=== PATIENT | male | born 1980 | race Caucasian/White ===

== ENCOUNTER 2019-12-17 11:43 | Emergency (ER) | payer OTHER ==
--- NOTE | 2019-12-17 12:13 | EDM.PDOC ---
ED HPI GENERAL MEDICAL PROBLEM - General Chief Complaint: Lower Extremity Injury/Pain Stated Complaint: RIGHT FRANKIE JUMPED OFF ROOF INTO SNOW Time Seen by Provider: 12/17/19 12:09 Source of Information: Reports: Patient History Limitations: Reports: No Limitations - History of Present Illness INITIAL COMMENTS - FREE TEXT/NARRATIVE: 39 yo male jumped into a snow pile and hit some ice. Has pain and some swelling to the lateral ankle area. Took ibuprofen before arrival. 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 Right Ankle Pain Score (Numeric/FACES): 6 - Related Data Allergies Allergy/AdvReac Type Severity Reaction Status Date / Time No Known Allergies Allergy Verified 12/17/19 11:57 Home Meds: Home Meds NK [No Known Home Meds] 12/17/19 [History] Past Medical History Cardiovascular History: Reports: None - Past Surgical History Head Surgeries/Procedures: Reports: None Cardiovascular Surgical History: Reports: Other (See Below) Social & Family History - Tobacco Use Smoking Status *Q: Current Every Day Smoker Years of Tobacco use: 15 Packs/Tins Daily: 1 Second Hand Smoke Exposure: No - Caffeine Use Caffeine Use: Reports: Coffee, Soda - Recreational Drug Use Recreational Drug Use: Yes Drug Use in Last 12 Months: Yes Recreational Drug Type: Reports: Marijuana/Hashish Recreational Drug Use Frequency: Socially Review of Systems - Review of Systems Review Of Systems: See Below Constitutional: Reports: No Symptoms Musculoskeletal: Reports: Joint Pain (R lateral ankle), Joint Swelling (R lateral ankle) Skin: Reports: No Symptoms Neurological: Reports: No Symptoms ED EXAM, GENERAL - Physical Exam Exam: See Below Exam Limited By: No Limitations General Appearance: Alert, WD/WN, No Apparent Distress Extremities: Normal Range of Motion, Pedal Edema (R lateral ankle), Joint Swelling (over R lateral malleolus). No: Normal Inspection, Non-Tender, No Pedal Edema, Meredith's Sign, Increased Warmth, Redness Neurological: Alert, Oriented, CN II-XII Intact, Normal Cognition, No Motor/ Sensory Deficits Psychiatric: Normal Affect, Normal Mood Skin Exam: Warm, Dry, Intact, Normal Color, No Rash Course - Vital Signs Last Recorded V/S: Last Vital Signs Temp 37.1 C 12/17/19 12:03 Pulse 86 12/17/19 12:03 Resp 17 12/17/19 12:03 BP 140/77 12/17/19 12:03 Pulse Ox 91 L 12/17/19 12:03 - Orders/Labs/Meds Orders: Active Orders 24 hr Category Date Time Status Ankle Min 3V Rt [CR] Stat Exams 12/17/19 12:08 Ordered - Radiology Interpretation Free Text/Narrative:: R ankle X-ray-neg Departure - Departure Time of Disposition: 12:35 Disposition: Home, Self-Care 01 Condition: Good Clinical Impression: Right ankle sprain Qualifiers: Encounter type: initial encounter Involved ligament of ankle: anterior talofibular ligament Qualified Code(s): S93.491A - Sprain of other ligament of right ankle, initial encounter - Discharge Information *PRESCRIPTION DRUG MONITORING PROGRAM REVIEWED*: No *COPY OF PRESCRIPTION DRUG MONITORING REPORT IN PATIENT CRISTOBAL: No Referrals: PCP,None [Primary Care Provider] - Forms: ED Department Discharge Additional Instructions: Wear splint with a tennis shoe until your pain is tolerable without the splint. Elevate and ice your foot today. Take ibuprofen 600 mg every 6 hrs and/or acetaminophen 1000 mg every 6 hrs for pain relief. Recheck as needed. Sepsis Event Note - Evaluation Sepsis Screening Result: No Definite Risk - Focused Exam Vital Signs: Vital Signs Temp Pulse Resp BP Pulse Ox 12/17/19 12:03 37.1 C 86 17 140/77 91 L 12/17/19 12:02 37.1 C 86 17 140/77 91 L Date Exam was Performed: 12/17/19 Time Exam was Performed: 12:27 - My Orders Last 24 Hours: My Active Orders 12/17/19 12:08 Ankle Min 3V Rt [CR] Stat - Assessment/Plan Last 24 Hours: My Active Orders 12/17/19 12:08 Ankle Min 3V Rt [CR] Stat
--- NOTE | 2019-12-17 12:37 | CRLCR ---
INDICATION: Lateral pain after fall. TECHNIQUE: Three views right ankle. FINDINGS: No acute fracture or dislocation in the right ankle. On the lateral view, there is a small right ankle effusion. Mild soft tissue swelling right ankle remainder negative. Dictated by Colten Lawrence MD @ Dec 17 2019 12:35PM Signed by Dr. Colten Lawrence @ Dec 17 2019 12:36PM
== END 2019-12-17 12:45 | disposition home or self-care (01) ==
LOC: JP.ED 11:43
DX: S93.491A Sprain of other ligament of right ankle, initial encounter (principal); F17.210 Nicotine dependence, cigarettes, uncomplicated; W22.8XXA Striking against or struck by other objects, initial encounter; Y93.39 Activity, other involving climbing, rappelling and jumping off
CPT/HCPCS: 73610-RT; 99283-25